=== PATIENT | female | born 1960 | race American Indian/Alaskan Native ===

== ENCOUNTER 2016-09-27 07:40 | Day surgery (SDC) | payer OTHER ==
[2016-09-24 09:58] VITALS: BMI 21.9
[2016-09-27] MEDS ORDERED: Bupivacaine HCl 0.5% PF (10 ml) Inj ONE ×2 (08:14)
[2016-09-27] MEDS ORDERED: Midazolam 2 MG/2 ML VIAL ONE ×2 (08:15)
[2016-09-27] MEDS ORDERED: Lidocaine 2% Inj (20ml) ONE (08:15)
[2016-09-27] MEDS ORDERED: Lidocaine 1% Inj (20ml) ONE ×2 (08:16→09:10)
[2016-09-27] MEDS ORDERED: ceFAZolin IV 1 gm in Dextrose 1 GM/50 ML BAG IVPB ONE (08:16)
[2016-09-27] MEDS ORDERED: Propofol 10 mg/ml Inj (20 ML) ONE (08:16)
[2016-09-27] MEDS ORDERED: Lactated Ringer's 1,000 ML IV ONE (08:30)
[2016-09-27] MEDS ORDERED: MethylPREDNISolone Depo 40 mg/ml Inj ONE (09:44)
--- NOTE | 2016-09-27 10:00 | PCM.SURG1 ---
Surgeon's Initial Post Op Note - Surgeon's Notes Surgeon: Dr. Sanchez DPM [employer] Worker: Dr. Robins DPM PGY-2, Dr. Bosch DPM PGY-1 Type of Anesthesia: IV Sedation, Local Anesthesia Administered By: Dr. Watts Pre-Operative Diagnosis: right foot dorsal exostosis with neuritis Operative Findings: see dictation. M:4-0 vicryl, 3-0 nylon Post-Operative Diagnosis: same Operation Performed: right foot revisional dorsal exostectomy, removal of scar tissue Specimen/Specimens Removed: none Estimated Blood Loss: EBL {In ML}: 2 Blood Products Given: N/A Drains Used: No Drains Post-Op Condition: Good Date of Surgery/Procedure: 09/27/16 Time of Surgery/Procedure: 09:58
[2016-09-27] MEDS ORDERED: Oxycodone/Acetaminophen 5/325 mg Tab PO PRN ×2 (10:01)
[2016-09-27 11:22] VITALS: BP 134/85; PULSE 58; RESP 18; TEMP 98; O2SAT 99
--- NOTE | 2016-09-27 14:51 | RAD ---
PROCEDURE: Right Foot Radiographs. HISTORY: s/p right foot surgery COMPARISON: None. FINDINGS: BONES: Expected postoperative findings following osteotomy proximal phalanx 5th digit. JOINTS: Normal. SOFT TISSUES: Normal. OTHER FINDINGS: None. IMPRESSION: No acute findings related to/accounting for the clinical presentation.
--- NOTE | 2016-09-28 11:55 | OP ---
PROCEDURE DATE: 09/27/2016 PREOPERATIVE DIAGNOSIS: Right foot dorsal exostosis with neuritis. POSTOPERATIVE DIAGNOSIS: Right foot dorsal exostosis with neuritis. PROCEDURE: Right foot revision of dorsal exostectomy with removal of scar tissue. SURGEON: Bhargavi Sanchez DPM. ASSISTANTS: 1. Modesta Robins DPM, PGY-2. 2. Rk Bosch DPM, PGY-1. TYPE OF ANESTHESIA: IV sedation with local. ANESTHESIA ADMINISTERED BY: Dr. Watts. INDICATIONS: The patient is a 56-year-old female with the above diagnosis. The patient has exhausted all conservative treatment at this time and now requires surgical intervention. The patient signed the consent after careful explanation of risks, benefits, complications and alternatives for the surgical procedure. No guarantees were given or implied. PREPARATION: The patient was brought into the operating room and placed on the operating room table in the supine position. A well-padded pneumatic ankle tourniquet was applied to the patient's right ankle in a supramalleolar position. A time-out was performed for correct identification of the patient and procedure. The patient received a total of 15 mL of 1:1 mixture of 1% lidocaine plain and 0.5% Marcaine plain in a local block fashion to the right forefoot. Once local anesthesia was achieved, the right foot was then prepped and draped in a normal sterile manner. The right foot was then exsanguinated and the pneumatic ankle tourniquet was inflated to 250 mmHg and the procedure began. Attention was directed to the dorsal aspect of the right foot where the previous incision was made. Utilizing a #15 blade, approximately a 4 cm linear incision was made to the previous incision site. Using sharp and blunt dissection, the incision was deepened. All bleeders were cauterized and ligated as necessary. Using a periosteal elevator, the periosteum was removed from the bone. Utilizing an osteotome and mallet, alleged bone was taken from the dorsal aspect of the foot. Utilizing a #15 blade, excess scar tissue was removed from the surgical site. Then utilizing an oscillating bone rasp, the bony prominences were smoothed down. The surgical site was irrigated out with copious amounts of normal sterile saline. The subcutaneous tissue was reapproximated using #4-0 Vicryl. The skin was reapproximated using #3-0 nylon. Intraoperatively, 8 mL of 1% lidocaine plain was given and a postoperative block consisting of 10 mL of 0.5% Marcaine and 1 mL of was given. The site was then dressed with Betadine-soaked Adaptic, 4x4's, Kerlix and gauze. POSTOPERATIVE CONDITION: The patient tolerated the anesthesia and procedure well and was escorted to recovery room with vital signs stable and neurovascular status intact to the right lower extremity. The patient will follow up with Dr. Sanchez in office. Modesta Robins DPM
== END 2016-09-27 11:45 | disposition home or self-care (01) ==
LOC: C.SDS 07:40
PROVIDERS: ATTEND Podiatrist Foot & Ankle Surgery
DX: M25.774 Osteophyte, right foot (principal); G57.31 Lesion of lateral popliteal nerve, right lower limb; G57.81 Other specified mononeuropathies of right lower limb
CPT/HCPCS: 28108; 73620; 97116; 97161; G8978; G8979; G8980; J0690; J2250; J2704; J3010; J7120

== ENCOUNTER 2017-04-19 05:33 | Day surgery (SDC) | payer OTHER ==
[2017-04-11 08:20] VITALS: BMI 22.6
[2017-04-19 06:11] VITALS: O2SAT 100
[2017-04-19] MEDS ORDERED: Lidocaine 1% Inj (20ml) ONE (07:27)
[2017-04-19] MEDS ORDERED: Bupivacaine HCl 0.25% PF (10 ml) Inj ONE (07:27)
[2017-04-19] MEDS ORDERED: ceFAZolin IV 2 gm in Dextrose 2 GM/50 ML BAG IVPB ONE (07:27)
[2017-04-19] MEDS ORDERED: Bupivacaine HCl 0.5% PF (10 ml) Inj ONE (07:42)
[2017-04-19] MEDS ORDERED: Propofol 10 mg/ml Inj (20 ML) ONE (08:00)
[2017-04-19] MEDS ORDERED: Midazolam 2 MG/2 ML VIAL ONE ×2 (08:00→08:55)
[2017-04-19] MEDS: Bupivacaine HCl 0.5% PF (10 ml) Inj ONE ×3 (08:22→09:30)
[2017-04-19] MEDS ORDERED: Oxycodone/Acetaminophen 5/325 mg Tab PO PRN ×2 (09:42)
--- NOTE | 2017-04-19 09:50 | PCM.SURG1 ---
Surgeon's Initial Post Op Note - Surgeon's Notes Surgeon: Dr. Daniel ORTA Track Supervisor: Dr. Shimon ORTA PYG-2 Type of Anesthesia: IV Sedation, Local Anesthesia Administered By: Dr. Mercado Pre-Operative Diagnosis: right foot ganglion cyst, complicated Operative Findings: see dictation. M:4-0 vicryl, 4-0 prolene Post-Operative Diagnosis: right foot ganglion cyst, complicted. right foot exostosis. right foot neuroma Operation Performed: right foot ganglion cyst, complicted. right foot exostectomy. right foot neuroma excision Specimen/Specimens Removed: right foot ganglion cyst, bone, nerve Estimated Blood Loss: EBL {In ML}: 2 Blood Products Given: N/A Drains Used: No Drains Post-Op Condition: Good Date of Surgery/Procedure: 04/19/17 Time of Surgery/Procedure: 09:50
[2017-04-19] MEDS ORDERED: HYDROmorphone 0.5 mg/0.5 ml ISec IVP PRN (09:59)
[2017-04-19] MEDS ORDERED: Lactated Ringer's 1,000 ML IV SCH (10:00)
[2017-04-19 12:38] VITALS: BP 131/78; PULSE 50; RESP 12; TEMP 97.8
--- NOTE | 2017-04-20 20:38 | OP ---
PROCEDURE DATE: 04/19/2017 SURGEON: Dr. Bhargavi Sanchez DPM. NURSE LICENSED PRACTICAL: Dr. Modesta Robins DPM, PGY-2. ANESTHESIOLOGIST: Dr. Colon. ANESTHESIA: Mac IV sedation with local injections. PREOPERATIVE DIAGNOSIS: Right foot ganglionic cyst, complicated. POSTOPERATIVE DIAGNOSES: 1. Right foot ganglion cyst, complicated. 2. Right foot TN exostosis. 3. Right foot neuroma. PROCEDURES: 1. Right foot excision of basal ganglion cyst. 2. Right foot talonavicular exostectomy. 3. Right foot excision of neuroma. INDICATIONS: The patient is a 57-year-old female with the above-mentioned diagnoses. The patient previously had surgery for an exostosis in the same area and since then has had ganglion cyst and pain. The patient has been treated by Dr. Sanchez in the office on an outpatient basis where she has exhausted multiple forms of conservative treatment. The patient agreed to undergo intervention at this time. All risks, benefits, and possible complications of proposed procedure have been explained to the patient at length. The patient verbalized understanding and wishes to proceed. All questions were answered. No guarantees were given or implied. Consent was signed. N.p.o. status was confirmed prior to taking the patient to the operating room. OPERATIVE PROCEDURE: The patient was brought into the operating room and placed on the operating table in supine position. A well-padded pneumatic ankle tourniquet was applied to the right ankle in a supramalleolar position. Once IV sedation was achieved, a local injection consisting of 20 mL of 1:1 mixture of 1% lidocaine plain and 0.5% Marcaine plain was given in a local block fashion to the patient's right foot. Once local anesthesia was achieved, the right foot was then prepped and draped in the usual sterile manner and the procedure began. The pneumatic ankle tourniquet was then inflated to 250 mmHg. PROCEDURE #1: Right foot excision of ganglion cyst. Attention was directed to the dorsal aspect of the right foot over the ganglion cyst and an incision approximately 7 cm was made overlying the area using a #15 blade. Dissection was carried down deep through the subcutaneous tissue with the combination of sharp and blunt dissection. Care was taken to retract all vital neurovascular structures and all bleeders were cauterized and ligated as necessary. At this time, the wall of the ganglion cyst was slowly excised using a combination of sharp and blunt dissection and were passed off the operative field and sent for Pathology. PROCEDURE #2: Right foot TN exostectomy. Attention was directed to the TN joint of the right foot where the patient had the previous surgery and where the stem of the ganglion cyst was noted. The bone was noted to be hypertrophied. Using an osteotome and mallet, the hypertrophied bone was then resected and passed off the operative field and sent for pathology. All rough edges were then smoothed down with a rasp. PROCEDURE #3: Right foot excision of neuroma. Attention was then directed to the deep peroneal nerve which was noted at the previous surgical site at the TN joint. The nerve was noted to be hypertrophied and was going into the talonavicular joint. Using a combination of sharp and blunt dissection, the bulbus portion of the nerve was then sharply retracted and cauterized, passed off the field and sent for pathology. The surgical site was then irrigated with copious amounts of normal sterile saline. The surgical site was then closed with #4-0 Vicryl. The skin was then reapproximated with #4-0 Prolene in a simple suture pattern technique. A postoperative injection consisting of 10 mL of 0.5% Marcaine plain and 10 mg of dexamethasone was given in a local block fashion to the patient's right foot. Postoperative bandages included Dermabond plus Adaptic, 4x4s, Sukhwinder, and wrapped with Sabino. Tourniquet was deflated at the end of the case and tourniquet time was noted to be 64 minutes. POSTOPERATIVE CONDITION: The patient tolerated the anesthesia and procedure well with no apparent complications or complaints. The patient was escorted from operating room to recovery room with vital signs stable and neurovascular structures intact. The patient will be followed by Dr. Sanchez in her office on an outpatient basis. Modesta Robins DPM Bhargavi Sanchez DPM [facility] # [id number] [facility]
== END 2017-04-19 12:26 | disposition home or self-care (01) ==
LOC: C.SDS 05:33
PROVIDERS: ATTEND Podiatrist Foot & Ankle Surgery
DX: M67.471 Ganglion, right ankle and foot (principal); M89.9 Disorder of bone, unspecified; D36.13 Benign neoplasm of peripheral nerves and autonomic nervous system of lower limb, including hip
CPT/HCPCS: 28043; 28090; 64782; 88304; J0690; J1100; J2250; J2405; J2704; J3010; J7120